=== PATIENT | male | born 1980 | race Caucasian/White ===

== ENCOUNTER 2017-06-18 23:09 | Emergency (ER) | payer OTHER ==
[~2017-06-18] VITALS: Ht 177.8 cm; Wt 74.8 kg
[~2017-06-18 23:09] MED LIST: ACETAMINOPHEN-1 EAC1 PO; APAP500 PO; AUGMENTIN 875875 MG PO; CARAFATE 1 GM TA1 G1 PO; CELEBREX 200 M200 M1 PO; CELEBREX 200 M200 MG PO; CIPRO500 MG PO; CLEOCIN HCL150 MG PO; CYMBALTA30 MG PO; CYMBALTA60 MG PO; DEXAMETHASONE 44 M1 PO; FLAGYL500 MG PO; HYDROCODONE-AP1 EAC6 PO; IBUPROFEN 200200 M1 PO; IBUPROFEN 800800 M1 PO; IBUPROFEN 800800 MG PO; KEFLEX500 MG PO; LORTAB 10-3251 EACH PO; MEDROLDOSEPACK PO; MIRALAX17 GM PO; NAPROSYN500 MG PO; NORCO 5-325 TA1 EAC1 PO; NORCO 5-325 TA1 EACH PO; PANTOPRAZOLE SO40 M1 PO; PENICILLIN VK500 MG PO; PERCOCET 10-321 EACH PO; PREDNISONE 20 M20 M1 PO; PRILOSEC 20 MG20 MG PO; ROBAXIN 750 MG750 M1 PO; ROBAXIN500 MG PO; TYLENOL EXTRA500 MG PO; TYLENOL325 MG PO; ZANAFLEX4 MG PO; ZOLOFT50 MG
[2017-06-18] MEDS ORDERED: LIORESAL 10 MG10 MG (23:19)
[2017-06-18] MEDS ORDERED: PREDNISONE10 MG (23:20)
[2017-06-18 23:38] VITALS: BP 134/89
== END 2017-06-18 23:39 | disposition home or self-care (01) ==
LOC: M.ERS 23:09
DX: M54.5 Low back pain (principal); G89.29 Other chronic pain; W18.09XA Striking against other object with subsequent fall, initial encounter; Z87.11 Personal history of peptic ulcer disease; Z88.6 Allergy status to analgesic agent; Z88.5 Allergy status to narcotic agent; Z98.890 Other specified postprocedural states; Y93.89 Activity, other specified; Y92.89 Other specified places as the place of occurrence of the external cause; Y99.8 Other external cause status

== ENCOUNTER 2017-08-11 22:23 | Emergency (ER) | payer OTHER ==
[~2017-08-11] VITALS: Ht 180.3 cm; Wt 77.1 kg
[~2017-08-11 22:23] MED LIST changes: +LIORESAL 10 MG10 MG; +PREDNISONE10 MG
[2017-08-11 22:31] VITALS: BP 134/88
[2017-08-11] MEDS ORDERED: DICLOFENAC SODI25 MG PO (22:35)
[2017-08-11] MEDS ORDERED: MEDROLDOSEPACK PO ×2 (22:40→22:44)
== END 2017-08-11 22:49 | disposition home or self-care (01) ==
LOC: M.ERS 22:23
DX: M26.623 Arthralgia of bilateral temporomandibular joint (principal); Z88.6 Allergy status to analgesic agent

== ENCOUNTER 2017-09-21 19:01 | Emergency (ER) | payer OTHER ==
[~2017-09-21] VITALS: Ht 177.8 cm; Wt 77.1 kg
[~2017-09-21 19:01] MED LIST changes: +DICLOFENAC SODI25 MG PO
[2017-09-21 19:35] LABS: ABSOLUTE BASOPHILS 0.1 thou/uL (0.0-0.2); ABSOLUTE EOSINOPHILS 0.2 thou/uL (0.0-0.7); ABSOLUTE LYMPHOCYTES 3.4 thou/uL (0.8-5.3); ABSOLUTE MONOCYTES 0.7 thou/uL (0.0-1.2); ABSOLUTE NEUTROPHILS 5.5 thou/uL (1.6-8.1); BASOPHILS 1.2 %; HEMATOCRIT 48.1 % (42.0-52.0); HEMOGLOBIN 16.6 gm/dL (14.0-18.0); LYMPHOCYTES 34.4 %; MCH 31.4 pg (26.0-34.0); MCHC 34.5 g/dL (28.0-37.0); MCV 90.9 fL (80.0-100.0); MONOCYTES 6.9 %; MPV 7.4 fl. (7.2-11.1); NUCLEATED RBCS 0 /100WBC; PLATELET COUNT* 329 thou/uL (150-400); POLYS 55.5 %; RBC 5.29 mil/uL (4.50-6.00)
[2017-09-21 19:40] LABS: URINE BILIRUBIN NEGATIVE (Negative); URINE BLOOD NEGATIVE (Negative); URINE CLARITY CLEAR; URINE COLOR YELLOW; URINE GLUCOSE-RANDOM NEGATIVE (Negative); URINE KETONES NEGATIVE (Negative); URINE LEUKOCYTES NEGATIVE (Negative); URINE NITRITE NEGATIVE (Negative); URINE PROTEIN NEGATIVE (Negative); URINE SPECIFIC GRAVITY >= 1.030 (1.005-1.030); URINE UROBILINOGEN 0.2 E.U./dl (0.2-1.0)
[2017-09-21 19:41] LABS: CALCIUM 9.3 mg/dL (8.5-10.1); POTASSIUM 3.7 mmol/L (3.5-5.1)
[2017-09-21 19:46] LABS: ALBUMIN 4.4 g/dL (3.4-5.0); TOTAL BILIRUBIN 0.3 mg/dL (<0.1-1.0); TOTAL PROTEIN 7.9 g/dL (6.4-8.2)
[2017-09-21 19:47] LABS: AMP/METHAMP Negative (Negative); BARBITURATES Negative (Negative); BENZODIAZEPINES Negative (Negative); COCAINE Negative (Negative); METHADONE Negative (Negative); OPIATES Negative (Negative); PCP Negative (Negative); THC Negative (Negative)
[2017-09-21] MEDS ORDERED: HYDROCODONE-AP1 EAC6 PO (20:00)
[2017-09-21 20:24] VITALS: BP 113/76
== END 2017-09-21 20:26 | disposition home or self-care (01) ==
LOC: M.ERS 19:01
PROVIDERS: Physician Assistant
DX: R10.13 Epigastric pain (principal); Z88.6 Allergy status to analgesic agent; Z88.8 Allergy status to other drugs, medicaments and biological substances

== ENCOUNTER 2017-11-21 20:51 | Emergency (ER) | payer OTHER ==
[~2017-11-21] VITALS: Ht 177.8 cm; Wt 76.2 kg
[2017-11-21 21:14] LABS: ABSOLUTE BASOPHILS 0.2 thou/uL (0.0-0.2); ABSOLUTE EOSINOPHILS 0.1 thou/uL (0.0-0.7); ABSOLUTE LYMPHOCYTES 3.4 thou/uL (0.8-5.3); ABSOLUTE MONOCYTES 0.9 thou/uL (0.0-1.2); ABSOLUTE NEUTROPHILS 7.1 thou/uL (1.6-8.1); BASOPHILS 1.3 %; EOSINOPHILS 1.1 %; HEMATOCRIT 53.5 % (42.0-52.0); HEMOGLOBIN 18.2 gm/dL (14.0-18.0); MCH 31.3 pg (26.0-34.0); MONOCYTES 7.6 %; MPV 7.8 fl. (7.2-11.1); NUCLEATED RBCS 0 /100WBC; PLATELET COUNT* 319 thou/uL (150-400); RBC 5.82 mil/uL (4.50-6.00); RDW-CV 13.4 % (10.5-14.5); WBC 11.6 thou/uL (4.0-11.0)
[2017-11-21 21:15] LABS: URINE BLOOD NEGATIVE (Negative); URINE CLARITY CLEAR; URINE COLOR YELLOW; URINE GLUCOSE-RANDOM NEGATIVE (Negative); URINE KETONES TRACE (Negative); URINE LEUKOCYTES-REFLEX NEGATIVE (Negative); URINE NITRITE-REFLEX NEGATIVE (Negative); URINE PROTEIN 1+ (Negative); URINE SPECIFIC GRAVITY >= 1.030 (1.005-1.030); URINE UROBILINOGEN 0.2 E.U./dl (0.2-1.0)
[2017-11-21 21:16] LABS: URINE BILIRUBIN 2+ (Negative)
[2017-11-21 21:18] LABS: ICTOTEST (BILI CONFIRMATORY) Negative (Negative)
[2017-11-21 21:21] LABS: CALCIUM 10.3 mg/dL (8.5-10.1); CREATININE 1.2 mg/dL (0.6-1.3); POTASSIUM 3.4 mmol/L (3.5-5.1)
[2017-11-21 21:22] LABS: AMP/METHAMP Negative (Negative); BARBITURATES Negative (Negative); BENZODIAZEPINES Negative (Negative); COCAINE Negative (Negative); METHADONE Negative (Negative); OPIATES POSITIVE (Negative); PCP Negative (Negative); THC Negative (Negative)
[2017-11-21 21:26] LABS: ALBUMIN 5.1 g/dL (3.4-5.0); TOTAL BILIRUBIN 0.4 mg/dL (<0.1-1.0); TOTAL PROTEIN 9.3 g/dL (6.4-8.2)
[2017-11-21] MEDS ORDERED: ZOFRAN4 MG PO (21:54)
[2017-11-21 22:42] VITALS: BP 132/88
== END 2017-11-21 22:48 | disposition home or self-care (01) ==
LOC: M.ERS 20:51
PROVIDERS: Emergency Medicine
DX: E86.0 Dehydration (principal); F17.210 Nicotine dependence, cigarettes, uncomplicated; Z88.6 Allergy status to analgesic agent; Z88.8 Allergy status to other drugs, medicaments and biological substances

== ENCOUNTER 2017-12-24 15:14 | Emergency (ER) | payer OTHER ==
[~2017-12-24] VITALS: Ht 177.8 cm; Wt 75.3 kg
[~2017-12-24 15:14] MED LIST changes: +ZOFRAN4 MG PO
[2017-12-24] MEDS ORDERED: ACETAMINOPHEN-1 EAC1 PO (16:20)
[2017-12-24 16:45] VITALS: BP 114/69
== END 2017-12-24 16:48 | disposition home or self-care (01) ==
LOC: M.ERS 15:14
DX: S60.221A Contusion of right hand, initial encounter (principal); F17.210 Nicotine dependence, cigarettes, uncomplicated; Z88.6 Allergy status to analgesic agent; Z88.8 Allergy status to other drugs, medicaments and biological substances; W01.0XXA Fall on same level from slipping, tripping and stumbling without subsequent striking against object, initial encounter; Y93.89 Activity, other specified; Y92.89 Other specified places as the place of occurrence of the external cause; Y99.8 Other external cause status

== ENCOUNTER 2018-05-10 20:30 | Emergency (ER) | payer OTHER ==
[~2018-05-10] VITALS: Ht 177.8 cm; Wt 77.1 kg
[2018-05-10] MEDS ORDERED: TYLENOL325 MG PO (20:44)
[2018-05-10] MEDS ORDERED: WELLBUTRIN 75 M75 M1 PO (20:45)
[2018-05-10 20:46] LABS: URINE BILIRUBIN NEGATIVE (Negative); URINE BLOOD NEGATIVE (Negative); URINE CLARITY CLEAR; URINE COLOR YELLOW; URINE GLUCOSE-RANDOM NEGATIVE (Negative); URINE KETONES NEGATIVE (Negative); URINE LEUKOCYTES-REFLEX NEGATIVE (Negative); URINE NITRITE-REFLEX NEGATIVE (Negative); URINE PROTEIN NEGATIVE (Negative); URINE SPECIFIC GRAVITY 1.025 (1.005-1.030); URINE UROBILINOGEN 0.2 E.U./dl (0.2-1.0)
[2018-05-10 20:57] LABS: ABSOLUTE EOSINOPHILS 0.3 thou/uL (0.0-0.7); ABSOLUTE LYMPHOCYTES 3.9 thou/uL (0.8-5.3); ABSOLUTE MONOCYTES 0.7 thou/uL (0.0-1.2); ABSOLUTE NEUTROPHILS 5.7 thou/uL (1.6-8.1); BASOPHILS 0.4 %; EOSINOPHILS 2.5 %; HEMATOCRIT 43.7 % (42.0-52.0); HEMOGLOBIN 15.1 gm/dL (14.0-18.0); LYMPHOCYTES 36.6 %; MCH 31.6 pg (26.0-34.0); MCHC 34.5 g/dL (28.0-37.0); MCV 91.7 fL (80.0-100.0); MONOCYTES 6.6 %; MPV 7.4 fl. (7.2-11.1); NUCLEATED RBCS 0 /100WBC; PLATELET COUNT* 317 thou/uL (150-400); POLYS 53.9 %; RBC 4.77 mil/uL (4.50-6.00); RDW-CV 13.2 % (10.5-14.5); WBC 10.6 thou/uL (4.0-11.0)
[2018-05-10 21:07] LABS: CALCIUM 9.4 mg/dL (8.5-10.1); CREATININE 1.2 mg/dL (0.6-1.3); POTASSIUM 3.3 mmol/L (3.5-5.1)
[2018-05-10 21:12] LABS: ALBUMIN 4.3 g/dL (3.4-5.0); LIPASE 158 U/L (73-393); TOTAL BILIRUBIN 0.3 mg/dL (<0.1-1.0); TOTAL PROTEIN 7.2 g/dL (6.4-8.2); TROPONIN-I LEVEL <0.06 ng/mL (<0.06)
[2018-05-10] MEDS ORDERED: PRILOSEC 20 MG20 MG PO (22:20)
[2018-05-10] MEDS ORDERED: BENTYL 20 MG TA20 M1 PO (22:20)
[2018-05-10 22:34] VITALS: BP 132/90
--- NOTE | 2018-05-11 11:36 | EKG ---
[place] [address] ELECTROCARDIOGRAM REPORT Name: BA LINDQUIST Room: [facility]#: [id number] Admission: 05/10/18 Attend Phys: Discharge: 05/10/18 Date of : 84 Report #: [id number] THIS REPORT FOR: //name// 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: ANN MARIE : 1980 Requested By: Jessica Ricardo Order Number: [id number] MD: Ac Knight Measurements Intervals [place] Rate: 63 P: 52 [place]: 143 QRS: 68 QRSD: 113 T: 16 QT: 382 QTc: 392 Interpretive Statements Sinus arrhythmia Borderline intraventricular conduction delay Abnormal inferior Q waves Compared to ECG 01/29/2017 19:53:12 Inferior Q waves now present Q waves now present Sinus rhythm no longer present Electronically Signed On 05-11-2018 11:36:23 POLISH COMPOUNDER by Ac Knight [email or web address] <ELECTRONICALLY SIGNED> By: Ac Knight MD, FACC 05/11/18 1136 [id number] 52 Ac Knight MD, [facility] /EPI
== END 2018-05-10 22:37 | disposition home or self-care (01) ==
LOC: M.ERS 20:30
PROVIDERS: Nurse Practitioner Family
DX: R10.13 Epigastric pain (principal); R19.7 Diarrhea, unspecified; F32.9 Major depressive disorder, single episode, unspecified; F41.9 Anxiety disorder, unspecified; F90.9 Attention-deficit hyperactivity disorder, unspecified type; F17.210 Nicotine dependence, cigarettes, uncomplicated; Z88.6 Allergy status to analgesic agent; Z88.8 Allergy status to other drugs, medicaments and biological substances

== ENCOUNTER 2018-06-30 19:48 | Emergency (ER) | payer OTHER ==
[~2018-06-30] VITALS: Ht 177.8 cm; Wt 78.5 kg
[~2018-06-30 19:48] MED LIST changes: +BENTYL 20 MG TA20 M1 PO; +WELLBUTRIN 75 M75 M1 PO
[2018-06-30] MEDS ORDERED: HYDROCODONE-AP1 EAC6 PO (21:07)
[2018-06-30] MEDS ORDERED: ZANAFLEX4 MG PO (21:07)
[2018-06-30 21:55] VITALS: BP 112/58
== END 2018-06-30 21:55 | disposition home or self-care (01) ==
LOC: M.ERS 19:48
DX: S16.1XXA Strain of muscle, fascia and tendon at neck level, initial encounter (principal); S70.01XA Contusion of right hip, initial encounter; S39.012A Strain of muscle, fascia and tendon of lower back, initial encounter; S29.012A Strain of muscle and tendon of back wall of thorax, initial encounter; F32.9 Major depressive disorder, single episode, unspecified; F41.9 Anxiety disorder, unspecified; M54.9 Dorsalgia, unspecified; G89.29 Other chronic pain; F17.210 Nicotine dependence, cigarettes, uncomplicated; Z88.6 Allergy status to analgesic agent; Z88.8 Allergy status to other drugs, medicaments and biological substances; W10.9XXA Fall (on) (from) unspecified stairs and steps, initial encounter; Y93.89 Activity, other specified; Y92.89 Other specified places as the place of occurrence of the external cause; Y99.8 Other external cause status

== ENCOUNTER 2018-07-14 12:30 | Emergency (ER) | payer OTHER ==
[~2018-07-14] VITALS: Ht 177.8 cm; Wt 77.1 kg
[2018-07-14 13:03] LABS: URINE BILIRUBIN NEGATIVE (Negative); URINE BLOOD TRACE (Negative); URINE CLARITY CLEAR; URINE COLOR YELLOW; URINE GLUCOSE-RANDOM NEGATIVE (Negative); URINE KETONES NEGATIVE (Negative); URINE LEUKOCYTES-REFLEX NEGATIVE (Negative); URINE NITRITE-REFLEX NEGATIVE (Negative); URINE PROTEIN NEGATIVE (Negative); URINE SPECIFIC GRAVITY 1.025 (1.005-1.030); URINE UROBILINOGEN 0.2 E.U./dl (0.2-1.0)
[2018-07-14 13:08] LABS: ABSOLUTE EOSINOPHILS 0.3 thou/uL (0.0-0.7); ABSOLUTE LYMPHOCYTES 2.4 thou/uL (0.8-5.3); ABSOLUTE MONOCYTES 0.6 thou/uL (0.0-1.2); ABSOLUTE NEUTROPHILS 4.8 thou/uL (1.6-8.1); BASOPHILS 0.4 %; EOSINOPHILS 4.1 %; HEMATOCRIT 46.1 % (42.0-52.0); HEMOGLOBIN 15.7 gm/dL (14.0-18.0); LYMPHOCYTES 29.5 %; MCH 31.8 pg (26.0-34.0); MCV 93.5 fL (80.0-100.0); MONOCYTES 7.5 %; NUCLEATED RBCS 0 /100WBC; PLATELET COUNT* 244 thou/uL (150-400); POLYS 58.5 %; RBC 4.93 mil/uL (4.50-6.00); RDW-CV 13.1 % (10.5-14.5); WBC 8.1 thou/uL (4.0-11.0)
[2018-07-14 13:23] LABS: CALCIUM 8.9 mg/dL (8.5-10.1); CREATININE 1.2 mg/dL (0.6-1.3); POTASSIUM 5.2 mmol/L (3.5-5.1)
[2018-07-14 13:24] LABS: AMP/METHAMP Negative (Negative); BARBITURATES Negative (Negative); BENZODIAZEPINES Negative (Negative); COCAINE Negative (Negative); METHADONE Negative (Negative); OPIATES POSITIVE (Negative); PCP Negative (Negative); THC Negative (Negative)
[2018-07-14 13:28] LABS: TOTAL BILIRUBIN 0.3 mg/dL (<0.1-1.0)
[2018-07-14 13:39] LABS: TOTAL PROTEIN 7.1 g/dL (6.4-8.2)
[2018-07-14] MEDS ORDERED: ED-SPAZ0.125 MG PO (14:45)
[2018-07-14] MEDS ORDERED: CARAFATE 1 GM TA1 GM PO (14:45)
[2018-07-14 15:03] VITALS: BP 138/84
--- NOTE | 2018-07-15 10:10 | EKG ---
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
== END 2018-07-14 14:54 | disposition home or self-care (01) ==
LOC: M.ERS 12:30
PROVIDERS: Nurse Practitioner Family
DX: K27.9 Peptic ulcer, site unspecified, unspecified as acute or chronic, without hemorrhage or perforation (principal); F32.9 Major depressive disorder, single episode, unspecified; F41.9 Anxiety disorder, unspecified; F17.210 Nicotine dependence, cigarettes, uncomplicated; Z88.6 Allergy status to analgesic agent; Z88.8 Allergy status to other drugs, medicaments and biological substances

== ENCOUNTER 2019-02-25 18:13 | Emergency (ER) | payer OTHER ==
[~2019-02-25] VITALS: Ht 177.8 cm; Wt 79.4 kg
[~2019-02-25 18:13] MED LIST changes: +CARAFATE 1 GM TA1 GM PO; +ED-SPAZ0.125 MG PO
[2019-02-25] MEDS ORDERED: VISTARIL 25 MG25 M1 PO (18:22)
[2019-02-25] MEDS ORDERED: CYMBALTA30 MG PO (18:22)
[2019-02-25 18:43] LABS: URINE BILIRUBIN NEGATIVE (Negative); URINE BLOOD NEGATIVE (Negative); URINE CLARITY CLEAR; URINE COLOR YELLOW; URINE GLUCOSE-RANDOM NEGATIVE (Negative); URINE KETONES TRACE (Negative); URINE LEUKOCYTES-REFLEX NEGATIVE (Negative); URINE NITRITE-REFLEX NEGATIVE (Negative); URINE PROTEIN NEGATIVE (Negative); URINE UROBILINOGEN 0.2 E.U./dl (0.2-1.0)
[2019-02-25 19:19] LABS: ABSOLUTE BASOPHILS 0.1 thou/uL (0.0-0.2); ABSOLUTE EOSINOPHILS 0.3 thou/uL (0.0-0.7); ABSOLUTE LYMPHOCYTES 4.2 thou/uL (0.8-5.3); ABSOLUTE MONOCYTES 0.9 thou/uL (0.0-1.2); ABSOLUTE NEUTROPHILS 4.8 thou/uL (1.6-8.1); BASOPHILS 1.2 %; HEMATOCRIT 45.5 % (42.0-52.0); HEMOGLOBIN 15.2 gm/dL (14.0-18.0); LYMPHOCYTES 40.8 %; MCH 31.7 pg (26.0-34.0); MCHC 33.5 g/dL (28.0-37.0); MCV 94.6 fL (80.0-100.0); MONOCYTES 8.9 %; MPV 7.4 fl. (7.2-11.1); NUCLEATED RBCS 0 /100WBC; PLATELET COUNT* 333 thou/uL (150-400); POLYS 46.1 %; RDW-CV 13.7 % (10.5-14.5); WBC 10.3 thou/uL (4.0-11.0)
[2019-02-25 19:26] LABS: CALCIUM 8.9 mg/dL (8.5-10.1); CREATININE 1.1 mg/dL (0.6-1.3); POTASSIUM 3.4 mmol/L (3.5-5.1)
[2019-02-25] MEDS ORDERED: FLAGYL500 M1 PO (20:56)
[2019-02-25] MEDS ORDERED: CIPRO500 M1 PO (20:56)
[2019-02-25] MEDS ORDERED: ACETAMINOPHEN-1 EAC1 PO (20:57)
[2019-02-25 21:17] VITALS: BP 124/80
== END 2019-02-25 21:18 | disposition home or self-care (01) ==
LOC: M.ERS 18:13
PROVIDERS: Nurse Practitioner Family
DX: K52.9 Noninfective gastroenteritis and colitis, unspecified (principal); F17.210 Nicotine dependence, cigarettes, uncomplicated; Z88.6 Allergy status to analgesic agent

== ENCOUNTER 2019-04-04 00:51 | Emergency (ER) | payer OTHER ==
[~2019-04-04] VITALS: Ht 177.8 cm; Wt 77.1 kg
[~2019-04-04 00:51] MED LIST changes: +CIPRO500 M1 PO; +FLAGYL500 M1 PO; +VISTARIL 25 MG25 M1 PO
[2019-04-04 00:56] VITALS: BP 126/84
[2019-04-04] MEDS ORDERED: WELLBUTRIN XL300 MG PO (01:00)
[2019-04-04] MEDS ORDERED: PROTONIX40 M2 PO (01:00)
[2019-04-04] MEDS ORDERED: NEURONTIN300 MG PO (01:00)
[2019-04-04] MEDS ORDERED: TRAZODONE 150150 M1 PO (01:01)
[2019-04-04] MEDS ORDERED: HYDROCODON-ACE1 EAC7 PO (01:07)
== END 2019-04-04 01:22 | disposition home or self-care (01) ==
LOC: M.ERS 00:51
DX: G89.29 Other chronic pain (principal); M25.552 Pain in left hip; F32.9 Major depressive disorder, single episode, unspecified; F41.9 Anxiety disorder, unspecified; M19.90 Unspecified osteoarthritis, unspecified site; F17.210 Nicotine dependence, cigarettes, uncomplicated; Z88.6 Allergy status to analgesic agent

== ENCOUNTER 2019-05-03 10:22 | Emergency (ER) | payer OTHER ==
[~2019-05-03] VITALS: Ht 177.8 cm; Wt 74.8 kg
[~2019-05-03 10:22] MED LIST changes: +HYDROCODON-ACE1 EAC7 PO; +NEURONTIN300 MG PO; +PROTONIX40 M2 PO; +TRAZODONE 150150 M1 PO; +WELLBUTRIN XL300 MG PO
[2019-05-03 10:49] LABS: URINE BILIRUBIN NEGATIVE (Negative); URINE BLOOD NEGATIVE (Negative); URINE CLARITY CLEAR; URINE COLOR YELLOW; URINE GLUCOSE-RANDOM TRACE (Negative); URINE KETONES NEGATIVE (Negative); URINE LEUKOCYTES-REFLEX NEGATIVE (Negative); URINE NITRITE-REFLEX NEGATIVE (Negative); URINE PROTEIN NEGATIVE (Negative); URINE SPECIFIC GRAVITY >= 1.030 (1.005-1.030); URINE UROBILINOGEN 0.2 E.U./dl (0.2-1.0)
[2019-05-03 10:50] LABS: ABSOLUTE BASOPHILS 0.1 thou/uL (0.0-0.2); ABSOLUTE EOSINOPHILS 0.3 thou/uL (0.0-0.7); ABSOLUTE LYMPHOCYTES 2.8 thou/uL (0.8-5.3); ABSOLUTE MONOCYTES 0.5 thou/uL (0.0-1.2); ABSOLUTE NEUTROPHILS 3.3 thou/uL (1.6-8.1); EOSINOPHILS 3.7 %; HEMATOCRIT 45.4 % (42.0-52.0); HEMOGLOBIN 15.8 gm/dL (14.0-18.0); LYMPHOCYTES 39.7 %; MCH 32.2 pg (26.0-34.0); MCHC 34.8 g/dL (28.0-37.0); MCV 92.5 fL (80.0-100.0); MONOCYTES 6.9 %; MPV 7.2 fl. (7.2-11.1); NUCLEATED RBCS 0 /100WBC; PLATELET COUNT* 364 thou/uL (150-400); POLYS 47.7 %
[2019-05-03 10:58] LABS: CREATININE 1.3 mg/dL (0.6-1.3); POTASSIUM 3.6 mmol/L (3.5-5.1)
[2019-05-03 11:02] LABS: ALBUMIN 4.1 g/dL (3.4-5.0); TOTAL BILIRUBIN 0.3 mg/dL (<0.1-1.0); TOTAL PROTEIN 7.7 g/dL (6.4-8.2)
[2019-05-03 11:33] VITALS: BP 136/79
[2019-05-03] MEDS ORDERED: APAP W/CODEINE1 TA2 PO (11:37)
[2019-05-03] MEDS ORDERED: MAGIC MOUTHWASH SW&SWALLOW (11:37)
[2019-05-03] MEDS ORDERED: PEPCID20 MG PO (11:37)
== END 2019-05-03 11:47 | disposition home or self-care (01) ==
LOC: M.ERS 10:22
PROVIDERS: Physician Assistant
DX: R10.84 Generalized abdominal pain (principal); M25.511 Pain in right shoulder; M25.531 Pain in right wrist; F32.9 Major depressive disorder, single episode, unspecified; F41.9 Anxiety disorder, unspecified; M19.90 Unspecified osteoarthritis, unspecified site; F17.210 Nicotine dependence, cigarettes, uncomplicated; Z88.6 Allergy status to analgesic agent; Z88.8 Allergy status to other drugs, medicaments and biological substances

== ENCOUNTER 2019-06-09 16:32 | Emergency (ER) | payer OTHER ==
[~2019-06-09] VITALS: Ht 177.8 cm; Wt 74.8 kg
[~2019-06-09 16:32] MED LIST changes: +APAP W/CODEINE1 TA2 PO; +MAGIC MOUTHWASH SW&SWALLOW; +PEPCID20 MG PO
[2019-06-09 17:46] VITALS: BP 122/75
== END 2019-06-09 17:48 | disposition home or self-care (01) ==
LOC: M.ERS 16:32
DX: M79.641 Pain in right hand (principal); F41.9 Anxiety disorder, unspecified; F32.9 Major depressive disorder, single episode, unspecified; G89.29 Other chronic pain; M54.9 Dorsalgia, unspecified; F17.210 Nicotine dependence, cigarettes, uncomplicated; M19.90 Unspecified osteoarthritis, unspecified site; Z98.890 Other specified postprocedural states; Z88.6 Allergy status to analgesic agent; Z88.8 Allergy status to other drugs, medicaments and biological substances

== ENCOUNTER 2019-06-12 14:44 | Emergency (ER) | payer OTHER ==
[~2019-06-12] VITALS: Ht 177.8 cm; Wt 72.6 kg
[2019-06-12 17:06] LABS: ABSOLUTE BASOPHILS 0.1 thou/uL (0.0-0.2); ABSOLUTE EOSINOPHILS 0.3 thou/uL (0.0-0.7); ABSOLUTE LYMPHOCYTES 3.1 thou/uL (0.8-5.3); ABSOLUTE MONOCYTES 0.7 thou/uL (0.0-1.2); ABSOLUTE NEUTROPHILS 6.7 thou/uL (1.6-8.1); BASOPHILS 1.2 %; EOSINOPHILS 2.5 %; HEMATOCRIT 41.4 % (42.0-52.0); HEMOGLOBIN 14.3 gm/dL (14.0-18.0); MCH 31.9 pg (26.0-34.0); MCHC 34.6 g/dL (28.0-37.0); MCV 92.3 fL (80.0-100.0); MONOCYTES 6.8 %; MPV 7.3 fl. (7.2-11.1); NUCLEATED RBCS 0 /100WBC; PLATELET COUNT* 288 thou/uL (150-400); POLYS 61.5 %; RBC 4.49 mil/uL (4.50-6.00); RDW-CV 13.4 % (10.5-14.5); WBC 10.9 thou/uL (4.0-11.0)
[2019-06-12 17:13] LABS: POTASSIUM 3.9 mmol/L (3.5-5.1)
[2019-06-12] MEDS ORDERED: FLEXERIL PO (17:16)
[2019-06-12] MEDS ORDERED: MEDROLDOSEPACK PO (17:16)
[2019-06-12] MEDS ORDERED: NORCO 5-325 TA1 EAC1 PO (17:16)
[2019-06-12 17:18] LABS: TOTAL BILIRUBIN 0.2 mg/dL (<0.1-1.0); TOTAL PROTEIN 6.9 g/dL (6.4-8.2)
[2019-06-12 17:39] VITALS: BP 113/80
== END 2019-06-12 17:40 | disposition home or self-care (01) ==
LOC: M.ERS 14:44
PROVIDERS: Emergency Medicine
DX: M62.838 Other muscle spasm (principal); M19.90 Unspecified osteoarthritis, unspecified site; F17.210 Nicotine dependence, cigarettes, uncomplicated; Z88.6 Allergy status to analgesic agent; Z88.8 Allergy status to other drugs, medicaments and biological substances

== ENCOUNTER 2019-08-14 08:03 | Emergency (ER) | payer OTHER ==
[~2019-08-14] VITALS: Ht 172.7 cm; Wt 68.0 kg
[~2019-08-14 08:03] MED LIST changes: +FLEXERIL PO
[2019-08-14] MEDS ORDERED: TRAZODONE 150150 M1 PO (08:25)
[2019-08-14] MEDS ORDERED: WELLBUTRIN 100100 MG PO (08:25)
[2019-08-14] MEDS ORDERED: FLEXERIL PO (08:30)
[2019-08-14] MEDS ORDERED: NORCO 5-325 TA1 EAC1 PO (08:30)
[2019-08-14 08:37] VITALS: BP 119/87
== END 2019-08-14 08:40 | disposition home or self-care (01) ==
LOC: M.ERS 08:03
DX: M54.42 Lumbago with sciatica, left side (principal); M19.90 Unspecified osteoarthritis, unspecified site; F17.210 Nicotine dependence, cigarettes, uncomplicated; Z88.6 Allergy status to analgesic agent; Z88.8 Allergy status to other drugs, medicaments and biological substances

== ENCOUNTER 2019-08-24 22:55 | Emergency (ER) | payer OTHER ==
[~2019-08-24] VITALS: Ht 177.8 cm; Wt 71.7 kg
[~2019-08-24 22:55] MED LIST changes: +WELLBUTRIN 100100 MG PO
[2019-08-24] MEDS ORDERED: FLEXERIL PO (23:56)
[2019-08-24] MEDS ORDERED: HYDROCODON-ACE1 EAC7 PO (23:56)
[2019-08-24] MEDS ORDERED: BACLOFEN 10MG T10 MG PO (23:56)
[2019-08-25 00:17] VITALS: BP 113/76
== END 2019-08-25 00:17 | disposition home or self-care (01) ==
LOC: M.ERS 22:55
DX: M54.16 Radiculopathy, lumbar region (principal); M54.9 Dorsalgia, unspecified; M19.90 Unspecified osteoarthritis, unspecified site; G89.29 Other chronic pain; F32.9 Major depressive disorder, single episode, unspecified; F41.9 Anxiety disorder, unspecified; F17.210 Nicotine dependence, cigarettes, uncomplicated; Z88.6 Allergy status to analgesic agent; Z88.8 Allergy status to other drugs, medicaments and biological substances

== ENCOUNTER 2019-09-23 17:44 | Emergency (ER) | payer OTHER ==
[~2019-09-23] VITALS: Ht 177.8 cm; Wt 72.6 kg
[~2019-09-23 17:44] MED LIST changes: +BACLOFEN 10MG T10 MG PO
[2019-09-23 18:16] LABS: ABSOLUTE EOSINOPHILS 0.3 thou/uL (0.0-0.7); ABSOLUTE LYMPHOCYTES 3.2 thou/uL (0.8-5.3); ABSOLUTE MONOCYTES 0.5 thou/uL (0.0-1.2); ABSOLUTE NEUTROPHILS 5.5 thou/uL (1.6-8.1); BASOPHILS 0.3 %; EOSINOPHILS 2.7 %; HEMATOCRIT 46.4 % (42.0-52.0); HEMOGLOBIN 16.2 gm/dL (14.0-18.0); LYMPHOCYTES 33.3 %; MCH 31.7 pg (26.0-34.0); MCV 90.7 fL (80.0-100.0); MONOCYTES 5.6 %; MPV 7.4 fl. (7.2-11.1); NUCLEATED RBCS 0 /100WBC; PLATELET COUNT* 316 thou/uL (150-400); POLYS 58.1 %; RBC 5.11 mil/uL (4.50-6.00); RDW-CV 13.2 % (10.5-14.5); WBC 9.6 thou/uL (4.0-11.0)
[2019-09-23 18:25] LABS: CALCIUM 8.6 mg/dL (8.5-10.1); POTASSIUM 3.7 mmol/L (3.5-5.1)
[2019-09-23 18:30] LABS: ALBUMIN 4.3 g/dL (3.4-5.0); TOTAL BILIRUBIN 0.3 mg/dL (<0.1-1.0); TOTAL PROTEIN 7.5 g/dL (6.4-8.2)
[2019-09-23 18:30] LABS: URINE BILIRUBIN NEGATIVE (Negative); URINE BLOOD NEGATIVE (Negative); URINE CLARITY CLEAR; URINE COLOR YELLOW; URINE GLUCOSE-RANDOM NEGATIVE (Negative); URINE KETONES NEGATIVE (Negative); URINE LEUKOCYTES-REFLEX NEGATIVE (Negative); URINE NITRITE-REFLEX NEGATIVE (Negative); URINE PROTEIN NEGATIVE (Negative); URINE SPECIFIC GRAVITY 1.015 (1.005-1.030); URINE UROBILINOGEN 0.2 E.U./dl (0.2-1.0)
[2019-09-23 18:50] VITALS: BP 118/87
== END 2019-09-23 18:50 | disposition home or self-care (01) ==
LOC: M.ERS 17:44
PROVIDERS: Physician Assistant
DX: R10.12 Left upper quadrant pain (principal); M19.90 Unspecified osteoarthritis, unspecified site; F32.9 Major depressive disorder, single episode, unspecified; F41.9 Anxiety disorder, unspecified; F90.9 Attention-deficit hyperactivity disorder, unspecified type; F17.210 Nicotine dependence, cigarettes, uncomplicated; Z88.6 Allergy status to analgesic agent; Z88.8 Allergy status to other drugs, medicaments and biological substances

== ENCOUNTER 2019-12-12 20:52 | Emergency (ER) | payer OTHER ==
[~2019-12-12] VITALS: Ht 177.8 cm; Wt 74.8 kg
[2019-12-12] MEDS ORDERED: PROCTOCREAM-HC30 GM RECTAL ×2 (22:12→22:13)
[2019-12-12 22:29] VITALS: BP 115/88
== END 2019-12-12 22:30 | disposition home or self-care (01) ==
LOC: M.ERS 20:52
DX: K64.4 Residual hemorrhoidal skin tags (principal); M19.90 Unspecified osteoarthritis, unspecified site; G89.29 Other chronic pain; F32.9 Major depressive disorder, single episode, unspecified; F41.9 Anxiety disorder, unspecified; F17.210 Nicotine dependence, cigarettes, uncomplicated; Z88.6 Allergy status to analgesic agent; Z88.8 Allergy status to other drugs, medicaments and biological substances

== ENCOUNTER 2020-05-26 12:46 | Emergency (ER) | payer OTHER ==
[~2020-05-26] VITALS: Ht 177.8 cm; Wt 72.6 kg
[~2020-05-26 12:46] MED LIST changes: +PROCTOCREAM-HC30 GM RECTAL
[2020-05-26] MEDS ORDERED: MEDROLDOSEPACK PO (14:23)
[2020-05-26] MEDS ORDERED: NORCO 5-325 TA1 EAC2 PO (14:23)
[2020-05-26 14:32] VITALS: BP 116/68
== END 2020-05-26 14:33 | disposition home or self-care (01) ==
LOC: M.ERS 12:46
DX: M25.511 Pain in right shoulder (principal); M25.531 Pain in right wrist; G56.21 Lesion of ulnar nerve, right upper limb; M19.90 Unspecified osteoarthritis, unspecified site; G89.29 Other chronic pain; F17.210 Nicotine dependence, cigarettes, uncomplicated; Z88.6 Allergy status to analgesic agent; Z88.5 Allergy status to narcotic agent; X50.1XXA Overexertion from prolonged static or awkward postures, initial encounter; Y93.89 Activity, other specified; Y92.69 Other specified industrial and construction area as the place of occurrence of the external cause; Y99.9 Unspecified external cause status

== ENCOUNTER 2020-09-24 21:55 | Emergency (ER) | payer OTHER ==
[~2020-09-24] VITALS: Ht 177.8 cm; Wt 72.6 kg
[~2020-09-24 21:55] MED LIST changes: +NORCO 5-325 TA1 EAC2 PO
[2020-09-24] MEDS ORDERED: FLEXERIL PO (23:18)
[2020-09-24] MEDS ORDERED: HYDROCODON-ACE1 EAC8 PO (23:18)
[2020-09-24] MEDS ORDERED: MEDROLDOSEPACK PO (23:18)
[2020-09-24 23:31] VITALS: BP 122/54
== END 2020-09-24 23:31 | disposition home or self-care (01) ==
LOC: M.ERS 21:55
DX: G89.29 Other chronic pain (principal); M25.552 Pain in left hip; M19.90 Unspecified osteoarthritis, unspecified site; F17.210 Nicotine dependence, cigarettes, uncomplicated; Z88.6 Allergy status to analgesic agent; Z88.8 Allergy status to other drugs, medicaments and biological substances

== ENCOUNTER 2020-12-07 00:42 | Emergency (ER) | payer OTHER ==
[~2020-12-07] VITALS: Ht 177.8 cm; Wt 74.8 kg
[~2020-12-07 00:42] MED LIST changes: +HYDROCODON-ACE1 EAC8 PO
[2020-12-07 01:45] LABS: ABSOLUTE BASOPHILS 0.1 thou/uL (0.0-0.2); ABSOLUTE EOSINOPHILS 0.3 thou/uL (0.0-0.7); ABSOLUTE LYMPHOCYTES 3.7 thou/uL (0.8-5.3); ABSOLUTE MONOCYTES 0.9 thou/uL (0.0-1.2); ABSOLUTE NEUTROPHILS 8.9 thou/uL (1.6-8.1); EOSINOPHILS 2.4 %; HEMATOCRIT 44.8 % (42.0-52.0); HEMOGLOBIN 15.6 gm/dL (14.0-18.0); LYMPHOCYTES 26.6 %; MCH 32.2 pg (26.0-34.0); MCHC 34.8 g/dL (28.0-37.0); MCV 92.6 fL (80.0-100.0); MONOCYTES 6.2 %; MPV 7.5 fl. (7.2-11.1); NUCLEATED RBCS 0 /100WBC; PLATELET COUNT* 316 thou/uL (150-400); POLYS 63.8 %; RBC 4.84 mil/uL (4.50-6.00); RDW-CV 13.5 % (10.5-14.5); WBC 13.9 thou/uL (4.0-11.0)
[2020-12-07 01:51] LABS: ANION GAP 10 mmol/L (7-16); BUN 10 mg/dL (7-18); CALCIUM 8.6 mg/dL (8.5-10.1); CHLORIDE 107 mmol/L (98-107); CO2 26 mmol/L (21-32); CREATININE 1.1 mg/dL (0.6-1.3); GLUCOSE 107 mg/dL (70-99); POTASSIUM 3.5 mmol/L (3.5-5.1); SODIUM 143 mmol/L (136-145)
[2020-12-07 01:52] LABS: URINE BILIRUBIN NEGATIVE (Negative); URINE BLOOD NEGATIVE (Negative); URINE CLARITY CLEAR; URINE COLOR YELLOW; URINE GLUCOSE-RANDOM NEGATIVE (Negative); URINE KETONES NEGATIVE (Negative); URINE LEUKOCYTES-REFLEX NEGATIVE (Negative); URINE NITRITE-REFLEX NEGATIVE (Negative); URINE PROTEIN NEGATIVE (Negative); URINE SPECIFIC GRAVITY 1.025 (1.005-1.030); URINE UROBILINOGEN 0.2 E.U./dl (0.2-1.0)
[2020-12-07 01:54] LABS: ALBUMIN 3.3 g/dL (3.4-5.0); ALKALINE PHOSPHATASE 75 U/L (46-116); LIPASE 203 U/L (73-393); SGOT 32 U/L (15-37); SGPT 53 U/L (30-65); TOTAL PROTEIN 6.5 g/dL (6.4-8.2)
[2020-12-07 01:55] LABS: TOTAL BILIRUBIN < 0.1 mg/dL (<0.1-1.0)
[2020-12-07 05:40] VITALS: BP 113/74
== END 2020-12-07 05:41 | disposition home or self-care (01) ==
LOC: M.ERS 00:42
PROVIDERS: Personal Emergency Response Attendant
DX: R10.32 Left lower quadrant pain (principal); F10.129 Alcohol abuse with intoxication, unspecified; Z88.6 Allergy status to analgesic agent; Z88.8 Allergy status to other drugs, medicaments and biological substances

== ENCOUNTER 2021-03-03 19:48 | Emergency (ER) | payer OTHER ==
[~2021-03-03] VITALS: Ht 177.8 cm; Wt 77.1 kg
[2021-03-03 20:56] LABS: URINE BILIRUBIN NEGATIVE (Negative); URINE BLOOD NEGATIVE (Negative); URINE CLARITY CLEAR; URINE COLOR YELLOW; URINE GLUCOSE-RANDOM NEGATIVE (Negative); URINE KETONES NEGATIVE (Negative); URINE LEUKOCYTES-REFLEX NEGATIVE (Negative); URINE NITRITE-REFLEX NEGATIVE (Negative); URINE PROTEIN NEGATIVE (Negative); URINE SPECIFIC GRAVITY >= 1.030 (1.005-1.030); URINE UROBILINOGEN 0.2 E.U./dl (0.2-1.0)
[2021-03-03 21:03] LABS: AMP/METHAMP Negative (Negative); BARBITURATES Negative (Negative); BENZODIAZEPINES Negative (Negative); COCAINE Negative (Negative); METHADONE Negative (Negative); OPIATES POSITIVE (Negative); PCP Negative (Negative); THC Negative (Negative)
[2021-03-03 21:43] VITALS: BP 110/70
== END 2021-03-03 21:44 | disposition home or self-care (01) ==
LOC: M.ERS 19:48
PROVIDERS: Emergency Medicine
DX: M25.552 Pain in left hip (principal); G89.29 Other chronic pain; F32.9 Major depressive disorder, single episode, unspecified; F41.9 Anxiety disorder, unspecified; M19.90 Unspecified osteoarthritis, unspecified site; F17.210 Nicotine dependence, cigarettes, uncomplicated; Z88.5 Allergy status to narcotic agent; Z88.6 Allergy status to analgesic agent; Z88.8 Allergy status to other drugs, medicaments and biological substances